=== PATIENT | female | born 1965 | race Caucasian/White ===

== ENCOUNTER → 2016-12-20 | Outpatient (CLI) | payer BC ==
[~2016-12-20] VITALS: Ht 157.5 cm; Wt 103.0 kg
[~2016-12-20] MED LIST: B-COMPLEX PLUS1 EACH PO; FISH OIL 1,001000 M2 PO; MULTIVITAMINS1 EAC7 PO; OMEPRAZOLE 20 M20 MG PO; VITAMIN C500 M1 PO; VITAMIN D3400 UNI2 PO; VITAMIN E400 UNIT PO
--- NOTE | ~2016-12-20 | CATHLAB ---
[facility] [place] [address] INVASIVE PROCEDURE REPORT Name: ANNITA ARGUETA Room #: REG CL [facility]#: [id number] Admission: 12/20/16 Attend Phys: Lawrence Rubio Discharge: Date of : 67 Date of Service: 12/20/16 1543 Report #: [id number] THIS REPORT FOR: //name// CC: Lawrence Lopez DATE OF SERVICE: 12/20/2016 PROCEDURES: 1. Left heart catheterization. 2. Selective left and right coronary angiography. 3. Measurement of left ventricular end diastolic pressure. 4. Supervision of conscious sedation. HOSIERY KNITTER: Lawrence Bauer M.D. INDICATIONS: This is a 51-year-old female patient with atypical chest pain and abnormal perfusion scan consistent with ischemia. BRIEF DESCRIPTION OF PROCEDURE: After informed consent was obtained, the patient was brought to the cardiac catheterization laboratory in stable condition. The patient's right groin was prepped and draped in the usual sterile manner after which lidocaine was then instilled. Utilizing a modified Seldinger technique, the right femoral artery was then accessed. Under fluoroscopic visualization using selective coronary catheters, the right and left coronaries were opacified and visualized. The left ventriculogram was likewise imaged per standard protocol with EDP being measured. Subsequent to this, the sheath was removed, hemostasis achieved. The patient tolerated the procedure well. There were no complications. FINDINGS: 1. HEMODYNAMICS: A. Aortic pressure 125/96. B. Left ventricular end diastolic pressure is 16-20. 2. FLUOROSCOPY: Under fluoroscopic visualization, there was minimal calcific plaquing along the epicardial coronary arteries. No significant plaquing on the valvular intramyocardial structures of the heart. ANGIOGRAPHY: This is a right coronary dominant system. A. Left main is essentially non-existent. B. Left anterior descending is a moderate caliber type 2-3 vessel which courses in the anterior interventricular sulcus free of high-grade disease as it gives rise to septal and diagonal branches. C. Left circumflex is a moderate to large caliber vessel, courses posteriorly giving rise to 2 marginal branches. These are free of high-grade disease or any obstructive lesions. [address] [address] INVASIVE PROCEDURE REPORT Name: ELLIEANNITA Room #: REG CL [facility]#: [id number] Admission: 12/20/16 Attend Phys: Lawrence Rubio Discharge: Date of : 67 Date of Service: 12/20/16 1543 Report #: [id number] D. Right coronary is an inferior and posterior origin large caliber vessel, dominant. It proceeds giving rise to posterior descending artery, posterior wall branches and right ventricular branches in its course, all of which are free of high-grade disease. IMPRESSION: 1. Essentially normal coronary arteries. 2. Normal hemodynamics. <ELECTRONICALLY SIGNED> By: Lawrence Bauer MD 12/21/16 1633 1543 1928 Lawrence Bauer MD /nt
[2016-12-20 08:16] VITALS: BP 125/83
[2016-12-20 08:16] LABS: HEMATOCRIT 40.2 % (37.0-47.0); HEMOGLOBIN 13.9 gm/dL (12.0-15.0); MCH 31.6 pg (26.0-34.0); MCHC 34.6 g/dL (28.0-37.0); MCV 91.3 fL (80.0-100.0); RBC 4.4 mil/uL (4.20-5.00); RDW 13.2 % (10.5-14.5); WBC 7.6 thou/uL (4.0-11.0)
[2016-12-20 08:26] LABS: CALCIUM 8.8 mg/dL (8.5-10.1); CREATININE 0.7 mg/dL (0.6-1.3); POTASSIUM 3.8 mmol/L (3.5-5.1)
== END | disposition home or self-care (01) ==
LOC: CATH 07:46
PROVIDERS: Internal Medicine
DX: I25.10 Atherosclerotic heart disease of native coronary artery without angina pectoris (principal); E78.5 Hyperlipidemia, unspecified; E66.9 Obesity, unspecified; Z87.891 Personal history of nicotine dependence

== ENCOUNTER → 2018-09-11 | Outpatient (CLI) | payer BC | LOC: RAD 09-09 09:54 | DX: Z12.31 Encounter for screening mammogram for malignant neoplasm of breast (principal) ==

== ENCOUNTER 2018-10-28 09:51 | Inpatient (IN) | payer BC ==
[~2018-10-28] VITALS: Ht 162.6 cm; Wt 106.6 kg
[2018-10-28 09:52] VITALS: BP 159/112
[2018-10-28 10:20] LABS: ABSOLUTE NEUTROPHILS 6.5 thou/uL (1.4-8.2); BASOPHILS 0.8 % (0.0-2.0); EOSINOPHILS 1.9 % (0.0-3.0); HEMATOCRIT 44.5 % (37.0-47.0); HEMOGLOBIN 15.3 gm/dL (12.0-15.0); LYMPHOCYTES 24.4 % (24.0-44.0); MCHC 34.4 g/dL (28.0-37.0); MCV 93.1 fL (80.0-100.0); PLATELET COUNT 171 thou/uL (150-400); POLYS 65.9 % (36.0-66.0); RBC 4.78 mil/uL (4.20-5.00); RDW 13.7 % (10.5-14.5); WBC 9.9 thou/uL (4.0-11.0)
[2018-10-28 10:30] LABS: ANION GAP 10 mmol/L (7-16); BUN 16 mg/dL (7-18); CALCIUM 9.3 mg/dL (8.5-10.1); CHLORIDE 104 mmol/L (98-107); CO2 26 mmol/L (21-32); CREATININE 0.9 mg/dL (0.6-1.0); GLUCOSE 105 mg/dL (74-106); POTASSIUM 3.5 mmol/L (3.5-5.1); SODIUM 140 mmol/L (136-145)
[2018-10-28 10:31] LABS: APTT 26.4 Seconds (24.5-32.8); PROTIME 10.5 Seconds (9.3-11.4)
[2018-10-28 10:39] LABS: ALBUMIN 3.8 g/dL (3.4-5.0); SGOT 22 U/L (15-37); SGPT 23 U/L (30-65); TOTAL BILIRUBIN 0.8 mg/dL (<0.1-1.0); TOTAL PROTEIN 7.8 g/dL (6.4-8.2); TROPONIN-I <0.06 ng/mL (<0.06)
[2018-10-28 12:00] VITALS: BP 125/90
[2018-10-28 12:13] VITALS: BP 125/90; BP 145/91
[2018-10-28 12:51] VITALS: BP 137/103
--- NOTE | 2018-10-28 16:05 | NUR ---
PT ADMITTED RELATED TO BILATERAL PE, DVT. CM REVIEWED CHART AND SPOKE WITH CARE TEAM. CM MET WITH PT AND HER SPOUSE AT BEDSIDE THIS DAY. PT IS A&O X4. CM ROLE INTRODUCED. PT INDICATED SHE LIVES IN A HOUSE WITH HER SPOUSE WITH 11 STEPS TO ENTER AND NO STEPS INSIDE. 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 PT INDICATED SHE HAD OP PT IN THE PAST. PT INDICATED SHE ANTICIPATES RETURNING HOME ONCE MEDICALLY STABLE. CM TO FOLLOW INDICATED WITH DC PLANNING.
[2018-10-28 16:28] VITALS: BP 150/103
--- NOTE | 2018-10-28 16:50 | EKG ---
[address] [employer] [address] ELECTROCARDIOGRAM REPORT Name: ELLIEVIVIANANNITAKENTRELL MATA Room #: 450-P ADM IN M.R.#: [id number] Admission: 10/28/18 Attend Phys: Olena Loya Discharge: Date of : 67 Report #: [id number] THIS REPORT FOR: //name// [facility] ED Test Date: 2018-10-28 Test Time: 10:10:39 Pat Name: ANNITA ARGUETA Department: Room: [facility] Gender: F Chorus Master: AMANDA : 1965 Requested By: Faiza Charles Order Number: [id number] MD: Keegan Mahmood Measurements Intervals [place] Rate: 93 P: 9 WV: 163 QRS: 18 QRSD: 87 T: 20 QT: 386 QTc: 481 Interpretive Statements Sinus rhythm No significant abnormality No previous ECG available for comparison Electronically Signed On 10-28-2018 16:50:01 JANITORIAL TECH by Keegan Mahmood [email or web address] <ELECTRONICALLY SIGNED> By: Keegan Mahmood MD, [facility] 10/28/18 1650 1010 1010 Keegan Mahmood MD, FACC /EPI
--- NOTE | 2018-10-28 18:37 | NUR ---
PT ARRIVED FROM ER. ASSESSMENT, HX AND EDUCATION COMPLETE. ORDERS IMPLEMENTED. PT WAS HYPERTENSIVE (170'S), CALLED PHYSICIAN AND IMPLEMENTED CARDIZEM. PT RESTING COMFORTABLY.
[2018-10-28 19:16] VITALS: BP 146/102
[2018-10-29 04:31] VITALS: BP 137/95
--- NOTE | 2018-10-29 04:38 | NUR ---
PROGRESS PT A/OX4, LUNGS CLEAR NO COUGH OR SOA NOTED. , ABDOMEN SOFT NON TENDER WITH POSITIVE BS. UP AD RAS. DENIES PAIN BUT REPORTED SOME GENERAL BODY ACHES FROM LAYING IN BED THAT WAS RELIEVED WITH HYDROCODONE. TELEMETRY READING SR/ST. ON ROOM AIR. RT TREATMENTS CONTINUE. SL IN LF FLUSHES WITHOUT DIFFICULTY. AMBULATING AD RSA IN ROOM. RT TX'S AND ELIQUIS AND LOVENOX GIVEN ORDERED. CONTINUE POC.
[2018-10-29 07:35] VITALS: BP 138/91
--- NOTE | 2018-10-29 14:52 | NUR ---
PT STABLE THROUGHOUT SHIFT. C/O HEADACHE THROUGHOUT SHIFT WHICH WAS TREATED WITH MEDICATION. PT RESTING COMFORTABLY.
--- NOTE | 2018-10-29 15:17 | NUR ---
CMCALLED PT'S PHARMACY [facility] [address] IN [place] AND PRICED OUT ELIQUIS 5MG BID AND THEY INDICATED 30 DAYS WOULD COST $54.00 AND 60 DAYS WOULD COST $108.71. CM NOTIFIED PT AND THEY INDICATED THAT WOULD BE FINE THEY ALSO HAVE A COUPON CARD FOR A 30DAY FREE TRIAL AND A $10.00 OFF COUPON. CM TO FOLLOW INDICATED WITH DC PLANNING.
[2018-10-29 17:13] VITALS: BP 136/96
[2018-10-29 19:27] VITALS: BP 136/87
[2018-10-30 03:31] VITALS: BP 139/91
--- NOTE | 2018-10-30 04:50 | NUR ---
Assumed care at 1845. Pt resting in bed with family member at bedside. Pt complaining about having a head and insisted of getting hydrocodone because it seemed to be working. Pt denies chest pain. No identified needs at the moment. Will continue to monitor.
[2018-10-30 07:34] VITALS: BP 134/76
[2018-10-30] MEDS ORDERED: ELIQUIS5 MG PO (09:38)
[2018-10-30 09:46] VITALS: BP 134/76
[2018-10-30] MEDS ORDERED: CARDIZEM CD 18180 M3 PO (10:05)
== END 2018-10-30 12:42 | disposition home or self-care (01) | DRG 299 ==
LOC: ER 09:51 → 4W 11:08 → EROBS 11:08 → 4W 12:13 → ENTRNSPT 10-30 10:43 → EDTRNSPTSTS 10-30 10:45 → 4W 10-30 12:42
PROVIDERS: Physician Assistant; ADMIT Hospitalist
DX: I82.431 Acute embolism and thrombosis of right popliteal vein (principal); I26.99 Other pulmonary embolism without acute cor pulmonale; Z68.41 Body mass index [BMI] 40.0-44.9, adult; I82.412 Acute embolism and thrombosis of left femoral vein; E78.5 Hyperlipidemia, unspecified; E66.9 Obesity, unspecified; I10 Essential (primary) hypertension; Z87.891 Personal history of nicotine dependence; Z79.899 Other long term (current) drug therapy; Z23 Encounter for immunization
CPT/HCPCS: 10045